=== PATIENT | male | born 1995 | race Caucasian/White ===

== ENCOUNTER 2022-08-18 13:16 | Emergency (ER) | payer MEDICAID, SELFPAY ==
[2022-08-18 13:35] VITALS: BP 149/90; PULSE 76; RESP 18; TEMP 36.7; O2SAT 99; BMI 36.8
--- NOTE | 2022-08-18 13:40 | W.ED.ABDPA2 ---
HPI - Abdominal Pain General: Chief Complaint: Abdominal Pain Stated Complaint: abd pain Time Seen by Provider: 08/18/22 13:40 History of Present Illness: Mr. Daly is a 27-year-old gentleman with history of diverticulosis presenting to the emergency department for upper abdominal pain. Reports onset of symptoms subacutely approximately 3 days ago without known specific provoking event. Since that time he has had intermittent episodes of varying intensity and duration pain which is mostly in the epigastric and right upper quadrant region that radiates around the flanks to his back. At times intensity of symptoms is severe. Denies specific worsening or relieving factors. He notes nausea with nonbilious and nonbloody emesis as well as loose stools. Denies lower abdominal pain, groin pain, changes in urination. No other specific changes in health, exacerbating, or alleviating factors identified. Onset (ago): day(s) Pain Consistency: intermittent Location: Epigastric, LUQ and RUQ Severity: moderate Quality: aching and sharp Radiation: L flank, R flank and back Migration to: no migration Exacerbating factors: nothing Relieving factors: nothing Associated Symptoms: Reports diarrhea, nausea and vomiting Review of Systems General: Reports: 10 or more systems reviewed and unremarkable except in HPI and below GI: Reports: nausea, vomiting and diarrhea PFSH ED PFSH: Medical History (Updated 08/18/22 @ 16:21 by Helder Krause MD) Diverticulosis Surgical History (Updated 08/18/22 @ 13:51 by Helder Krause MD) History of surgical removal of pilonidal cyst Physical Exam Const: COMMON NORMALS: alert GENERAL APPEARANCE: cooperative and well developed HENMT: COMMON NORMALS: normocephalic and atraumatic HEAD & SCALP: normocephalic and atraumatic Eye: COMMON NORMALS: conjunctivae normal CONJUNCTIVA: Yes conjunctivae normal SCLERA: sclerae normal Neck/C-Spine: COMMON NORMALS: supple GENERAL: Yes trachea midline Resp: COMMON NORMALS: clear to auscultation bilaterally EFFORT & INSPECTION: Yes able to speak in complete sentences AUSCULTATION: clear to auscultation bilaterally Cardio: COMMON NORMALS: regular rate and regular rhythm RATE: regular rate RHYTHM: regular rhythm GI: COMMON NORMALS: Soft to palpation PALPATION: Yes Soft to palpation and No Tenderness to palpation present (GI) Extremity: GENERAL: Yes normal exam except as noted and No edema Neuro: COMMON NORMALS: moves all extremities SENSORIUM/ORIENTATION: Yes alert and No Orientation impaired Psych: COMMON NORMALS: mental status grossly normal and Normal thought process present THOUGHT PROCESS: Normal thought process present Course Vital Signs: Vital signs: Vital Signs Temperature 98.0 F 08/18/22 13:35 Pulse Rate 84 08/18/22 16:38 Respiratory Rate 18 08/18/22 16:38 Blood Pressure 141/73 08/18/22 16:38 Pulse Oximetry 99 08/18/22 13:35 Oxygen Delivery Me thod 08/18/22 13:35 MDM - Abdominal Pain Medical Decision Making 27-year-old gentleman presenting with upper abdominal pain. He does have a history of diverticulitis which felt similar. No groin pain or testicular/penile pain. Patient is nontoxic though uncomfortable on exam. No evidence of acute surgical abdomen. Labs with mild hemoconcentration, no leukocytosis. Elevated sodium and chloride level. CT demonstrates no evidence of acute pathology in the abdomen. There is possible cause of symptoms with pneumonia. During ED course patient treated with analgesia, IV fluids, antiemetic. He feels improved on repeat examination and is able to tolerate p.o. intake. Most likely etiology of symptoms is unclear however may be referred pain from pulmonary source which will be treated. The results of ED evaluation were discussed with the patient including prescriptions and/or symptomatic cares (if applicable) including appropriate and responsible use, followup plan, and return precautions. The patient verbalized understanding and felt safe for discharge. Medical Records I reviewed the patient's medical records. Lab Data I reviewed the patient's lab results. 08/18/22 14:46 08/18/22 14:46 Labs/Radiology: Radiology Impressions Abdomen/Pelvis CT 08/18/22 15:18 IMPRESSION: 1. No CT evidence of acute intra-abdominal or pelvic pathology. 2. Patchy bilateral lower lobe reticulonodular infiltrates, suggestive of small airway disease/aspiration. 3. Additional findings, as above. Laboratory Results WBC 5.6 10^3/uL (4.0-10.0) 08/18/22 14:46 RBC 5.50 10^6/uL (4.1-5.3) H 08/18/22 14:46 Hgb 16.1 g/dL (11.7-16.6) 08/18/22 14:46 Hct 50.2 % (42.0-52.0) 08/18/22 14:46 MCV 91.3 fl (80-94) 08/18/22 14:46 MCH 29.3 pg (28.0-34.0) 08/18/22 14:46 MCHC 32.1 g/dL (30.0-36.0) 08/18/22 14:46 RDW 13.1 % (12.1-15.1) 08/18/22 14:46 Plt Count 293 10^3/cmm (130-400) 08/18/22 14:46 MPV 10.7 fL (7.4-10.4) H 08/18/22 14:46 Neut % (Auto) 43.4 % 08/18/22 14:46 Lymph % (Auto) 36.7 % 08/18/22 14:46 [place] % (Auto) 13.1 % 08/18/22 14:46 Eos % (Auto) 5.7 % 08/18/22 14:46 Baso % (Auto) 0.9 % 08/18/22 14:46 Neut # (Auto) 2.45 10^3/uL (1.8-7.7) 08/18/22 14:46 Lymph # (Auto) 2.1 10^3/uL (0.8-4.8) 08/18/22 14:46 [place] # (Auto) 0.7 10^3/uL (0.2-0.9) 08/18/22 14:46 Eos # (Auto) 0.3 10^3/uL (0.0-0.8) 08/18/22 14:46 Baso # (Auto) 0.1 10^3/uL (0.0-0.1) 08/18/22 14:46 Nucleated RBC % (auto) 0 % 08/18/22 14:46 Nucleated RBCs # 0.0 /100WBC 08/18/22 14:46 Sodium 147 mmol/L (136-145) H 08/18/22 14:46 Potassium 3.8 mmol/L (3.5-5.1) 08/18/22 14:46 Chloride 108 mmol/L (98-107) H 08/18/22 14:46 Carbon Dioxide 28 mmol/L (22-29) 08/18/22 14:46 Anion Gap 14.8 (5-19) 08/18/22 14:46 BUN 4 mg/dL (6-20) L 08/18/22 14:46 Creatinine 0.6 mg/dL (0.7-1.2) L 08/18/22 14:46 GFR Calculation 161.6 mL/min (90-130) H 08/18/22 14:46 Glucose 87 mg/dL (65-115) 08/18/22 14:46 Calculated Osmolality 300 mOsm/kg (285-295) H 08/18/22 14:46 Calcium 9.1 mg/dL (8.5-10.5) 08/18/22 14:46 Total Bilirubin 0.4 mg/dL (0.15-1.2) 08/18/22 14:46 AST 25 U/L (0-40) 08/18/22 14:46 ALT 30 U/L (0-41) 08/18/22 14:46 Alkaline Phosphatase 94 U/L (40-130) 08/18/22 14:46 Total Protein 7.2 g/dL (6.6-8.7) 08/18/22 14:46 Albumin 4.1 g/dL (3.5-5.2) 08/18/22 14:46 Globulin 3.1 g/dL (1.3-4.6) 08/18/22 14:46 Lipase 35 U/L (13-60) 08/18/22 14:46 Discharge Plan Discharge Patient Disposition: Home Clinical Impression: Abdominal pain, epigastric, Dehydration, mild, Pulmonary infection Condition: Stable Prescriptions: New albuterol sulfate 90 mcg/actuation HFA aerosol inhaler 2 inh inhalation Q4H PRN (Reason: shortness of breath or wheezing) Qty: 8.5 0RF ondansetron 4 mg tablet,disintegrating 4 mg PO Q8H PRN (Reason: nausea and vomiting) Qty: 15 0RF amoxicillin-pot clavulanate 875-125 mg tablet 1 tab PO BID Qty: 20 0RF No Action ibuprofen 200 mg Capsule 200 mg PO Q6H PRN (Reason: Pain) Prilosec 20 mg Capsule,Delayed Release(Dr/Ec) 20 mg PO DAILY Discharge Orders: Discharge ED (Routine); Ordered 08/18/22 Ordered By: Helder Krause Discharge Diet: Advance as tolerated and Clear Liquid Discharge Activity: Increase activity as tolerated Patient Instructions: Abdominal Pain (ED), Pneumonia (ED), Opioid Safety Activity Restrictions/Additional Instructions: Thank you for visiting the emergency department. You were seen and evaluated for abdominal pain. The exact cause of your symptoms is unclear though may be related to mild gastritis or a pulmonary infection. I will prescribe steroids and antibiotics. Please also use your albuterol metered-dose inhaler 2 puffs every 4 hours for 24 hours followed by 2 puffs every 6 hours for 24 hours followed by 2 puffs every 8 hours for 24 hours and then return to the normal schedule. I will also prescribe antinausea medication. Please ensure that you are staying hydrated. You may use [id number] medications such as acetaminophen and ibuprofen for pain however please do not exceed the daily recommended dosage as listed on the packaging and please keep in mind that many namebrand medications contain the same active ingredients. Please avoid these medications if previously instructed to do so by another physician due to other underlying medical condition. Please follow-up with your primary care provider. Return to the emergency department for anything that you are concerned about and feel needs emergency department evaluation. Coding Level of Care Code ED Senior Paralegal for Bonnie Aquino
[2022-08-18 14:51] LABS: Basophils # 0.1 10^3/uL (0.0-0.1); Basophils % 0.9 %; Eosinophils # 0.3 10^3/uL (0.0-0.8); Eosinophils % 5.7 %; Hematocrit 50.2 % (42.0-52.0); Hemoglobin 16.1 g/dL (11.7-16.6); Lymphocytes # 2.1 10^3/uL (0.8-4.8); Lymphocytes % 36.7 %; Mean Corpuscular HGB Conc 32.1 g/dL (30.0-36.0); Mean Corpuscular Hemoglobin 29.3 pg (28.0-34.0); Mean Corpuscular Volume 91.3 fl (80-94); Mean Platelet Volume 10.7 fL (7.4-10.4); Monocytes # 0.7 10^3/uL (0.2-0.9); Monocytes % 13.1 %; Neutrophils # 2.45 10^3/uL (1.8-7.7); Neutrophils % 43.4 %; Nucleated Red Blood Cells % 0 %; Platelet Count 293 10^3/cmm (130-400); Red Cell Distribution Width 13.1 % (12.1-15.1); White Blood Count 5.6 10^3/uL (4.0-10.0)
[2022-08-18 15:08] LABS: Albumin Level 4.1 g/dL (3.5-5.2); Alkaline Phosphatase 94 U/L (40-130); Anion Gap 14.8 (5-19); Aspartate Amino Transferase 25 U/L (0-40); Blood Urea Nitrogen 4 mg/dL (6-20); Calcium 9.1 mg/dL (8.5-10.5); Carbon Dioxide 28 mmol/L (22-29); Chloride 108 mmol/L (98-107); Globulin 3.1 g/dL (1.3-4.6); Glomerular Filtration Rate 161.6 mL/min (90-130); Glucose 87 mg/dL (65-115); Lipase 35 U/L (13-60); Osmolality Calculated 300 mOsm/kg (285-295); Potassium 3.8 mmol/L (3.5-5.1); Sodium 147 mmol/L (136-145); Total Bilirubin 0.4 mg/dL (0.15-1.2); Total Protein 7.2 g/dL (6.6-8.7)
--- NOTE | 2022-08-18 15:18 | CTR_ITS ---
PROCEDURE INFORMATION: Exam: CT Abdomen And Pelvis With Contrast Exam date and time: 08/18/2022 3:38 PM Age: 27 years old Clinical indication: Abdominal pain; Prior surgery; Surgery type: Pilonidal cystectomy; Additional info: Epigastric/upper abd pain, HX diverticulitis TECHNIQUE: Imaging protocol: Computed tomography of the abdomen and pelvis with contrast. Axial, coronal and sagittal reformatted images were created and reviewed. Radiation optimization: All CT scans at this facility use at least one of these dose optimization techniques: automated exposure control; mA and/or kV adjustment per patient size (includes targeted exams where dose is matched to clinical indication); or iterative reconstruction. Contrast material: OMNI 350; Contrast volume: 100 ml; Contrast route: INTRAVENOUS (IV); REPORTING DATA: Count of CT and Cardiac NM exams in prior 12 months: This patient has received 0 known CTs and 0 known cardiac nuclear medicine studies in the 12 months prior to the current study. COMPARISON: No relevant prior studies available. RADIATION DOSE METRICS: Total DLP (mGy-cm): 1180.83 FINDINGS: Tracheobronchial tree: Patchy bilateral lower lobe reticulonodular infiltrates, suggestive of small airway disease/aspiration. Liver: Unremarkable. Gallbladder and bile ducts: No radiodense gallstones. No biliary ductal dilatation. Pancreas: Unremarkable. Spleen: Unremarkable. Adrenal glands: Normal. No mass. Kidneys and ureters: No mass. No radiodense calculi. No hydronephrosis. Stomach and bowel: No bowel wall thickening. No obstruction. No pneumatosis. Appendix: Normal. Intraperitoneal space: No free fluid. No organized fluid collection. No free air. Vasculature: Unremarkable. No aneurysm. Lymph nodes: No pathologically enlarged lymph nodes. Urinary bladder: Unremarkable as visualized. Reproductive: Unremarkable. Bones/joints: No acute osseous abnormality. Soft tissues: Small, fat containing umbilical hernia. CT/CT abdomen pelvis w con* [id number] IMPRESSION: 1. No CT evidence of acute intra-abdominal or pelvic pathology. 2. Patchy bilateral lower lobe reticulonodular infiltrates, suggestive of small airway disease/aspiration. 3. Additional findings, as above.
[2022-08-18 15:19] LABS: Alanine Aminotransferase 30 U/L (0-41)
[2022-08-18] MEDS: iohexol 350 mg/mL 500 mL Btl (per mL) IV (15:49)
[2022-08-18] MEDS: lactated ringers 1,000 ML 999 ML IV (15:52)
[2022-08-18 16:08] VITALS: BP 165/70; PULSE 118
[2022-08-18 16:38] VITALS: BP 141/73; PULSE 84; RESP 18
--- NOTE | 2022-08-22 13:54 | DCPLANNER ---
commercial portfolio manager called patient due to no primary care physician - patient stated that he goes to the [facility]
== END 2022-08-18 16:39 | disposition home or self-care (01) ==
PROVIDERS: Emergency Provider Emergency Medicine
DX: R10.13 Epigastric pain (principal); E86.0 Dehydration; J18.9 Pneumonia, unspecified organism
CPT/HCPCS: 74177; 80053; 83690; 85025; 99285; J7120; Q9967

== ENCOUNTER → 2022-10-12 14:31 | Outpatient (BNVA) | payer MEDICAID, SELFPAY | PROVIDERS: PCP Family Medicine; Visit Provider Family Medicine | DX: K57.90 Diverticulosis of intestine, part unspecified, without perforation or abscess without bleeding (principal); J30.2 Other seasonal allergic rhinitis | CPT/HCPCS: 82785; 86003 ==

== ENCOUNTER 2023-01-08 11:36 | Outpatient (CLI) | payer MEDICAID, SELFPAY ==
[2023-01-10 17:39] LABS: Galactose-alpha-1,3 IgE <0.10 kU/L (<0.10)
== END 2023-01-08 11:37 | disposition home or self-care (01) ==
LOC: LAB 11:39
PROVIDERS: PCP Family Medicine; Visit Provider Specialist
DX: Z91.014 Allergy to mammalian meats (principal)
CPT/HCPCS: 86008

== ENCOUNTER 2023-01-24 13:38 | Outpatient (CLI) | payer MEDICAID, SELFPAY | END 2023-01-24 13:39 | disposition home or self-care (01) | PROVIDERS: PCP Family Medicine; Visit Provider Specialist | DX: Z91.014 Allergy to mammalian meats (principal) | CPT/HCPCS: 94010; 94726; 94729 ==

== ENCOUNTER → 2023-07-09 16:01 | Outpatient (BNVA) | payer MEDICAID, SELFPAY | PROVIDERS: PCP Family Medicine; Visit Provider Internal Medicine Pulmonary Disease | DX: R06.02 Shortness of breath (principal) | CPT/HCPCS: 71046 ==

== ENCOUNTER → 2023-12-19 16:31 | Outpatient (BNVA) | payer MEDICAID, SELFPAY | PROVIDERS: PCP Family Medicine; Visit Provider Registered Nurse Neonatal Intensive Care | DX: J02.9 Acute pharyngitis, unspecified (principal); J03.80 Acute tonsillitis due to other specified organisms; B96.89 Other specified bacterial agents as the cause of diseases classified elsewhere | CPT/HCPCS: 87880 ==